=== PATIENT | male | born 1960 | race Two or more races ===

== ENCOUNTER 2019-09-14 12:49 | Emergency (ER) | payer SELFPAY ==
[~2019-09-14] VITALS: Ht 175.3 cm; Wt 150.6 kg
[2019-09-14 13:02] VITALS: BP 152/95
[2019-09-14 13:55] LABS: Basophils # (auto) 0 uL; Basophils % (auto) 0.6 % (0.0-2.0); Eosinophils # (auto) 0.2 uL; Eosinophils % (auto) 2.4 % (0.0-7.0); Hematocrit 43.3 % (41.0-53.0); Hemoglobin 14.6 g/dL (13.5-17.5); Lymphocytes # (auto) 1.7 uL; Lymphocytes % (auto) 26.2 % (10.0-50.0); Mean Corpuscular Hemoglobin 33.4 pg (28.0-32.0); Mean Corpuscular Hgb Conc. 33.8 g/dL (32.0-36.0); Mean Corpuscular Volume 98.6 fL (80.0-100.0); Monocytes # (auto) 0.6 uL; Monocytes % (auto) 8.9 % (0.0-12.0); Neutrophils # (auto) 4.1 uL; Neutrophils % (auto) 61.9 % (37.0-80.0); Nucleated Red Blood Cells % 0.1 %; Platelet Count (auto) 213 10^3/uL (140-450); Red Blood Cells 4.39 10^6/uL (4.5-5.90); Red Cell Distribution Width 13.3 % (11.8-14.3); White Blood Cell 6.6 10^3/uL (4.4-10.8)
[2019-09-14 14:17] LABS: Albumin 3.4 g/dL (3.4-5.0); Anion Gap 4 (5-15); Blood Urea Nitrogen 12 mg/dL (7-18); Calcium 9.7 mg/dL (8.5-10.1); Carbon Dioxide 27 mmol/L (21-32); Chloride 107 mmol/L (98-107); Glucose 83 mg/dL (74-106); Potassium 3.9 mmol/L (3.5-5.1); Sodium 138 mmol/L (136-145)
[2019-09-14 14:20] LABS: Alanine Aminotransferase 16 U/L (16-61); Aspartate Aminotransferase 7 U/L (15-37); Bilirubin, Total 0.5 mg/dL (0.2-1.0); GFR African American 118 mL/min; GFR Non-African American 97 mL/min; Total Protein 7.8 g/dL (6.4-8.2)
[2019-09-14 14:23] LABS: Alkaline Phosphatase 96 U/L (45-117)
== END 2019-09-14 17:16 | disposition left against medical advice (07) ==
LOC: ER 12:49
DX: R07.89 Other chest pain (principal); Z53.21 Procedure and treatment not carried out due to patient leaving prior to being seen by health care provider
CPT/HCPCS: 36415; 71046; 80053; 83735; 83880; 84484; 85025

== ENCOUNTER 2019-11-30 20:09 | Emergency (ER) | payer OTHER ==
[~2019-11-30] VITALS: Ht 175.3 cm; Wt 146.1 kg
[2019-11-30] MEDS ORDERED: ONDANSETRON HCL 4 MG/2 ML VIAL IV ONE (20:30)
[2019-11-30] MEDS ORDERED: MORPHINE SULFATE 4 MG/ML SYR/VIAL IV ONE (20:30)
[2019-11-30] MEDS ORDERED: SODIUM CHLORIDE 0.9% 1,000 ML IV ONE (20:30)
[2019-11-30 21:45] LABS: Basophils # (auto) 0 10 ^3/uL (0-0.2); Basophils % (auto) 0.8 % (0.0-2.0); Eosinophils # (auto) 0.1 10 ^3/uL (0-0.8); Eosinophils % (auto) 2.4 % (0.0-7.0); Hematocrit 42.2 % (41.0-53.0); Hemoglobin 14.1 g/dL (13.5-17.5); Lymphocytes # (auto) 1.9 10 ^3/uL (0.4-5.4); Lymphocytes % (auto) 32.1 % (10.0-50.0); Mean Corpuscular Hemoglobin 32.7 pg (28.0-32.0); Mean Corpuscular Hgb Conc. 33.5 g/dL (32.0-36.0); Mean Corpuscular Volume 97.8 fL (80.0-100.0); Monocytes # (auto) 0.5 10 ^3/uL (0-1.3); Monocytes % (auto) 9.2 % (0.0-12.0); Neutrophils # (auto) 3.2 10 ^3/uL (1.6-8.6); Neutrophils % (auto) 55.5 % (37.0-80.0); Nucleated Red Blood Cells % 0.2 %; Platelet Count (auto) 215 10^3/uL (140-450); Red Blood Cells 4.32 10^6/uL (4.5-5.90); Red Cell Distribution Width 13.7 % (11.8-14.3); White Blood Cell 5.8 10^3/uL (4.4-10.8)
[2019-11-30 22:01] LABS: Albumin 3.2 g/dL (3.4-5.0); Calcium 9.5 mg/dL (8.5-10.1); Potassium 4.1 mmol/L (3.5-5.1)
[2019-11-30 22:05] LABS: BUN/Creatinine Ratio 16.7; Bilirubin, Total 0.4 mg/dL (0.2-1.0); Total Protein 7.2 g/dL (6.4-8.2)
[2019-11-30] MEDS ORDERED: MORPHINE SULF INJ 2 MG/ML SYRINGE 1ML IV ONE (22:15)
[2019-11-30 22:25] VITALS: BP 131/83
== END 2019-11-30 23:14 | disposition home or self-care (01) ==
LOC: ER 20:10
DX: N20.0 Calculus of kidney (principal); I25.10 Atherosclerotic heart disease of native coronary artery without angina pectoris; I10 Essential (primary) hypertension; I25.2 Old myocardial infarction
CPT/HCPCS: 36415; 74176; 80053; 85025; 96361; 96374; 96375; 96376; 99284; J2270; J2405; J7030

== ENCOUNTER 2019-12-03 18:38 | Inpatient (IN) | payer OTHER ==
[~2019-12-03] VITALS: Ht 175.3 cm; Wt 149.7 kg
[2019-12-03] MEDS ORDERED: MORPHINE SULFATE 4 MG/ML SYR/VIAL IV ONE (19:30)
[2019-12-03] MEDS ORDERED: SODIUM CHLORIDE 0.9% 1,000 ML IV ONE (19:30)
[2019-12-03] MEDS ORDERED: ONDANSETRON HCL 4 MG/2 ML VIAL IV ONE (19:30)
[2019-12-03 19:55] LABS: Basophils # (auto) 0 10 ^3/uL (0-0.2); Basophils % (auto) 0.7 % (0.0-2.0); Eosinophils # (auto) 0.1 10 ^3/uL (0-0.8); Eosinophils % (auto) 2.3 % (0.0-7.0); Hematocrit 42.6 % (41.0-53.0); Hemoglobin 14.2 g/dL (13.5-17.5); Lymphocytes # (auto) 1.8 10 ^3/uL (0.4-5.4); Lymphocytes % (auto) 29.5 % (10.0-50.0); Mean Corpuscular Volume 98.3 fL (80.0-100.0); Monocytes # (auto) 0.5 10 ^3/uL (0-1.3); Monocytes % (auto) 8.2 % (0.0-12.0); Neutrophils # (auto) 3.7 10 ^3/uL (1.6-8.6); Neutrophils % (auto) 59.3 % (37.0-80.0); Nucleated Red Blood Cells % 0.1 %; Red Blood Cells 4.34 10^6/uL (4.5-5.90); White Blood Cell 6.2 10^3/uL (4.4-10.8)
[2019-12-03 19:56] LABS: Mean Corpuscular Hemoglobin 32.7 pg (28.0-32.0); Mean Corpuscular Hgb Conc. 33.3 g/dL (32.0-36.0); Platelet Count (auto) 230 10^3/uL (140-450); Red Cell Distribution Width 13.8 % (11.8-14.3)
[2019-12-03 20:03] LABS: Albumin 3.3 g/dL (3.4-5.0); BUN/Creatinine Ratio 18.8; Calcium 9.7 mg/dL (8.5-10.1)
[2019-12-03 20:05] LABS: Bilirubin, Total 0.3 mg/dL (0.2-1.0); Total Protein 7.5 g/dL (6.4-8.2)
[2019-12-03 21:09] LABS: Urine WBC None Seen /hpf (0 - 3)
[2019-12-03 21:16] LABS: Urine Bacteria NONE SEEN /hpf (None Seen); Urine Blood Negative /uL (Negative); Urine Specific Gravity 1.024 (1.001-1.035)
[2019-12-03] MEDS ORDERED: SODIUM CHLORIDE 0.9% 1,000 ML IV SCH (22:29)
[2019-12-03] MEDS ORDERED: HYDROcodone-ACET 5/325MG TAB PO PRN (22:30)
[2019-12-03] MEDS ORDERED: HYDROmorphone HCL 2 MG/ML VL IV ONE (22:30)
[2019-12-03] MEDS ORDERED: DOCUSATE SOD 100 MG CAP PO PRN (22:30)
[2019-12-03] MEDS ORDERED: ONDANSETRON HCL 4 MG/2 ML VIAL IV PRN (22:30)
[2019-12-03] MEDS ORDERED: TEMAZEPAM 15 MG CAP PO ONE (22:30)
[2019-12-03] MEDS ORDERED: ACETAMINOPHEN 325 MG TAB PO PRN (22:30)
[2019-12-03] MEDS ORDERED: MORPHINE SULF INJ 2 MG/ML SYRINGE 1ML IV PRN (22:30)
[2019-12-03] MEDS ORDERED: HYDROmorphone HCL 2 MG/ML VL IM PRN (22:30)
[2019-12-03] MEDS ORDERED: cefTRIAXone 1GM/50ML D5W 50 ML IV SCH (23:00)
[2019-12-04 05:56] VITALS: BP 156/83
[2019-12-04] MEDS ORDERED: NICOTINE 14 MG/24HR TOPICAL PATCH TD SCH (10:00)
== END 2019-12-04 05:10 | disposition left against medical advice (07) | DRG 465 ==
LOC: ER 18:38 → OVERFLOW 18:39 → WEST WING 23:08
PROVIDERS: ADMIT Hospitalist; ATTEND Hospitalist
DX: N20.0 Calculus of kidney (principal); E27.8 Other specified disorders of adrenal gland; D35.01 Benign neoplasm of right adrenal gland; I10 Essential (primary) hypertension; N39.0 Urinary tract infection, site not specified; I25.10 Atherosclerotic heart disease of native coronary artery without angina pectoris; Z53.29 Procedure and treatment not carried out because of patient's decision for other reasons; Z86.73 Personal history of transient ischemic attack (TIA), and cerebral infarction without residual deficits; Z80.9 Family history of malignant neoplasm, unspecified; Z95.1 Presence of aortocoronary bypass graft; Z87.442 Personal history of urinary calculi; D35.02 Benign neoplasm of left adrenal gland; I70.0 Atherosclerosis of aorta
CPT/HCPCS: 36415; 74176; 80053; 81001; 82962; 85025; 96365; 96375; 96376; G0378; J0696; J2405

== ENCOUNTER 2019-12-08 19:12 | Inpatient (IN) | payer OTHER ==
[~2019-12-08] VITALS: Ht 175.3 cm; Wt 147.9 kg
[2019-12-08 20:29] LABS: Basophils # (auto) 0 10 ^3/uL (0-0.2); Basophils % (auto) 0.7 % (0.0-2.0); Eosinophils # (auto) 0.1 10 ^3/uL (0-0.8); Eosinophils % (auto) 2.5 % (0.0-7.0); Hematocrit 42.7 % (41.0-53.0); Hemoglobin 14.3 g/dL (13.5-17.5); Lymphocytes # (auto) 1.8 10 ^3/uL (0.4-5.4); Lymphocytes % (auto) 31.4 % (10.0-50.0); Mean Corpuscular Hemoglobin 32.9 pg (28.0-32.0); Mean Corpuscular Hgb Conc. 33.4 g/dL (32.0-36.0); Mean Corpuscular Volume 98.3 fL (80.0-100.0); Monocytes # (auto) 0.5 10 ^3/uL (0-1.3); Monocytes % (auto) 8.7 % (0.0-12.0); Neutrophils # (auto) 3.3 10 ^3/uL (1.6-8.6); Neutrophils % (auto) 56.7 % (37.0-80.0); Nucleated Red Blood Cells % 0.1 %; Platelet Count (auto) 211 10^3/uL (140-450); Red Blood Cells 4.34 10^6/uL (4.5-5.90); Red Cell Distribution Width 13.8 % (11.8-14.3); White Blood Cell 5.9 10^3/uL (4.4-10.8)
[2019-12-08 20:45] LABS: Partial Thromboplastin Time 27.2 sec (23.64-32.05)
[2019-12-08 20:48] LABS: Albumin 3.2 g/dL (3.4-5.0); Anion Gap 4 (5-15); Blood Urea Nitrogen 15 mg/dL (7-18); Carbon Dioxide 28 mmol/L (21-32); Chloride 106 mmol/L (98-107); Glucose 120 mg/dL (74-106); Potassium 3.8 mmol/L (3.5-5.1); Sodium 138 mmol/L (136-145)
[2019-12-08 20:58] LABS: Alanine Aminotransferase 19 U/L (16-61); Alkaline Phosphatase 88 U/L (45-117); Aspartate Aminotransferase 13 U/L (15-37); BUN/Creatinine Ratio 20.8; Bilirubin, Total 0.3 mg/dL (0.2-1.0); GFR African American 145 mL/min; GFR Non-African American 120 mL/min; Total Protein 7.2 g/dL (6.4-8.2)
[2019-12-08] MEDS ORDERED: MORPHINE SULF INJ 2 MG/ML SYRINGE 1ML IV PRN (21:15)
[2019-12-08] MEDS ORDERED: ONDANSETRON HCL 4 MG/2 ML VIAL IV PRN (21:15)
[2019-12-08] MEDS ORDERED: TEMAZEPAM 15 MG CAP PO PRN (21:15)
[2019-12-08 21:52] VITALS: BP 138/85
[2019-12-08] MEDS ORDERED: FAMOTIDINE 20 MG TAB PO SCH (22:00)
[2019-12-08] MEDS ORDERED: ATORVASTATIN 20 MG TAB PO SCH ×2 (22:00→22:15)
[2019-12-08 22:37] LABS: Cholesterol 210 mg/dL (< 200)
[2019-12-08 22:41] LABS: HDL Cholesterol 27 mg/dL (40-59); LDL Cholesterol 148 mg/dL (< 100); Triglycerides 320 mg/dL (< 150)
[2019-12-08 22:47] LABS: Alcohol, Urine < 3.0 mg/dL (0-5); Amphetamine Screen, Urine NEGATIVE (NEGATIVE); Barbiturate Scree,Urine NEGATIVE (NEGATIVE); Benzodiazephine Screen, Urine NEGATIVE (NEGATIVE); Cannabinoid Screen, Urine NEGATIVE (NEGATIVE); Cocaine Screen, Urine NEGATIVE (NEGATIVE); Opiate Scree,Urine NEGATIVE (NEGATIVE); Phencyclidine Screen, Urine NEGATIVE (NEGATIVE)
[2019-12-09] MEDS ORDERED: LISINOPRIL 20 MG TAB PO SCH (10:00)
[2019-12-09] MEDS ORDERED: ASPirin 81 mg TAB PO SCH (10:00)
[2019-12-09] MEDS ORDERED: METOPROLOL TARTRATE 50 MG TAB PO SCH (10:00)
[2019-12-09] MEDS ORDERED: ENOXAPARIN SOD 40 MG/0.4 ML SYRINGE SC SCH (10:00)
== END 2019-12-08 22:40 | disposition left against medical advice (07) | DRG 198 ==
LOC: ER 19:13 → TELE 19:14
PROVIDERS: ADMIT Nurse Practitioner; ATTEND Nurse Practitioner
DX: I25.110 Atherosclerotic heart disease of native coronary artery with unstable angina pectoris (principal); I24.9 Acute ischemic heart disease, unspecified; E44.1 Mild protein-calorie malnutrition; I11.9 Hypertensive heart disease without heart failure; Z53.29 Procedure and treatment not carried out because of patient's decision for other reasons; E66.01 Morbid (severe) obesity due to excess calories; E78.5 Hyperlipidemia, unspecified; F17.210 Nicotine dependence, cigarettes, uncomplicated; Z80.9 Family history of malignant neoplasm, unspecified; Z82.49 Family history of ischemic heart disease and other diseases of the circulatory system; Z86.73 Personal history of transient ischemic attack (TIA), and cerebral infarction without residual deficits; Z95.1 Presence of aortocoronary bypass graft; Z87.442 Personal history of urinary calculi; I25.2 Old myocardial infarction; Z88.5 Allergy status to narcotic agent; Z88.8 Allergy status to other drugs, medicaments and biological substances; Z91.041 Radiographic dye allergy status; Z98.61 Coronary angioplasty status
CPT/HCPCS: 36415; 71045; 80053; 80061; 80307; 83880; 84443; 84484; 85025; 85610; 85730; 96374; 96375; 99291; G0378; J2405

== ENCOUNTER 2019-12-09 22:46 | Emergency (ER) | payer OTHER ==
[~2019-12-09] VITALS: Ht 175.3 cm; Wt 148.3 kg
[2019-12-09 23:00] VITALS: BP 162/97
[2019-12-09 23:45] LABS: Basophils # (auto) 0.1 10 ^3/uL (0-0.2); Eosinophils # (auto) 0.2 10 ^3/uL (0-0.8); Eosinophils % (auto) 2.7 % (0.0-7.0); Hematocrit 41.7 % (41.0-53.0); Hemoglobin 14.1 g/dL (13.5-17.5); Lymphocytes # (auto) 1.9 10 ^3/uL (0.4-5.4); Mean Corpuscular Hemoglobin 33.4 pg (28.0-32.0); Mean Corpuscular Hgb Conc. 33.8 g/dL (32.0-36.0); Mean Corpuscular Volume 98.7 fL (80.0-100.0); Monocytes # (auto) 0.5 10 ^3/uL (0-1.3); Monocytes % (auto) 8.1 % (0.0-12.0); Neutrophils # (auto) 3.4 10 ^3/uL (1.6-8.6); Neutrophils % (auto) 56.2 % (37.0-80.0); Nucleated Red Blood Cells % 0.1 %; Platelet Count (auto) 200 10^3/uL (140-450); Red Blood Cells 4.22 10^6/uL (4.5-5.90); Red Cell Distribution Width 13.6 % (11.8-14.3); White Blood Cell 6.1 10^3/uL (4.4-10.8)
[2019-12-10 00:07] LABS: Albumin 3.2 g/dL (3.4-5.0); BUN/Creatinine Ratio 18.4; Calcium 9.3 mg/dL (8.5-10.1); Potassium 4.1 mmol/L (3.5-5.1)
[2019-12-10 00:09] LABS: Bilirubin, Total 0.2 mg/dL (0.2-1.0); Total Protein 7.4 g/dL (6.4-8.2)
== END 2019-12-10 00:37 | disposition left against medical advice (07) ==
LOC: ER 22:46
DX: R31.9 Hematuria, unspecified (principal); Z53.21 Procedure and treatment not carried out due to patient leaving prior to being seen by health care provider
CPT/HCPCS: 36415; 80053; 85025

== ENCOUNTER 2019-12-14 22:07 | Emergency (ER) | payer OTHER ==
[~2019-12-14] VITALS: Ht 175.3 cm; Wt 148.3 kg
[2019-12-14 23:37] LABS: Basophils # (auto) 0 10 ^3/uL (0-0.2); Basophils % (auto) 0.5 % (0.0-2.0); Eosinophils # (auto) 0.1 10 ^3/uL (0-0.8); Hematocrit 41.8 % (41.0-53.0); Hemoglobin 14.5 g/dL (13.5-17.5); Lymphocytes # (auto) 2.1 10 ^3/uL (0.4-5.4); Lymphocytes % (auto) 30.1 % (10.0-50.0); Mean Corpuscular Hemoglobin 33.9 pg (28.0-32.0); Mean Corpuscular Hgb Conc. 34.7 g/dL (32.0-36.0); Mean Corpuscular Volume 97.5 fL (80.0-100.0); Monocytes # (auto) 0.5 10 ^3/uL (0-1.3); Monocytes % (auto) 7.3 % (0.0-12.0); Neutrophils # (auto) 4.2 10 ^3/uL (1.6-8.6); Neutrophils % (auto) 60.1 % (37.0-80.0); Platelet Count (auto) 233 10^3/uL (140-450); Red Blood Cells 4.28 10^6/uL (4.5-5.90); Red Cell Distribution Width 13.8 % (11.8-14.3); White Blood Cell 7.1 10^3/uL (4.4-10.8)
[2019-12-14 23:53] LABS: INR 0.99 (0.9-1.15); Partial Thromboplastin Time 26.6 sec (23.64-32.05)
[2019-12-14 23:55] LABS: Albumin 3.2 g/dL (3.4-5.0); Anion Gap 5 (5-15); Blood Urea Nitrogen 9 mg/dL (7-18); Calcium 9.4 mg/dL (8.5-10.1); Carbon Dioxide 26 mmol/L (21-32); Chloride 108 mmol/L (98-107); Glucose 106 mg/dL (74-106); Magnesium 2.1 mg/dL (1.6-2.6); Potassium 3.6 mmol/L (3.5-5.1); Sodium 139 mmol/L (136-145)
[2019-12-14 23:57] LABS: BUN/Creatinine Ratio 11.7; GFR African American 134 mL/min; GFR Non-African American 111 mL/min
[2019-12-15] MEDS ORDERED: LORazepam 0.5 MG TAB PO ONE
[2019-12-15] MEDS ORDERED: NITROGLYCERIN 0.4MG/HR TOPICAL PATCH TD ONE
[2019-12-15] MEDS ORDERED: ENOXAPARIN SOD 100 MG/1 ML SYRINGE SC ONE
[2019-12-15] MEDS ORDERED: ASPirin 81 mg TAB PO ONE
[2019-12-15] MEDS ORDERED: ONDANSETRON HCL 4 MG/2 ML VIAL IV ONE
[2019-12-15 00:02] LABS: Alanine Aminotransferase 19 U/L (16-61); Alkaline Phosphatase 87 U/L (45-117); Aspartate Aminotransferase 9 U/L (15-37); Bilirubin, Total 0.3 mg/dL (0.2-1.0); Total Protein 7.6 g/dL (6.4-8.2)
[2019-12-15 01:45] VITALS: BP 128/66
[2019-12-15] MEDS ORDERED: MORPHINE SULFATE 10 MG/ML INJ 1ML SDV IV ONE ×2 (01:45)
== END 2019-12-15 02:53 | disposition left against medical advice (07) ==
LOC: ER 22:08
DX: I20.9 Angina pectoris, unspecified (principal); I10 Essential (primary) hypertension; E11.9 Type 2 diabetes mellitus without complications; I25.2 Old myocardial infarction; F17.210 Nicotine dependence, cigarettes, uncomplicated; Z87.442 Personal history of urinary calculi; Z86.73 Personal history of transient ischemic attack (TIA), and cerebral infarction without residual deficits; Z88.8 Allergy status to other drugs, medicaments and biological substances
CPT/HCPCS: 36415; 71046; 80053; 83735; 83880; 84484; 85025; 85610; 85730; 93005; 96372; 96374; 96375; 96376; 99285; J1650; J2270; J2405

== ENCOUNTER 2019-12-18 23:30 | Emergency (ER) | payer OTHER ==
[~2019-12-18] VITALS: Ht 172.7 cm; Wt 127.0 kg
[2019-12-18 23:39] VITALS: BP 144/99
[2019-12-19 00:07] LABS: Basophils # (auto) 0 10 ^3/uL (0-0.2); Basophils % (auto) 0.7 % (0.0-2.0); Eosinophils # (auto) 0.2 10 ^3/uL (0-0.8); Eosinophils % (auto) 2.5 % (0.0-7.0); Hemoglobin 14.8 g/dL (13.5-17.5); Lymphocytes # (auto) 2.3 10 ^3/uL (0.4-5.4); Mean Corpuscular Hemoglobin 32.9 pg (28.0-32.0); Mean Corpuscular Hgb Conc. 33.7 g/dL (32.0-36.0); Mean Corpuscular Volume 97.6 fL (80.0-100.0); Monocytes # (auto) 0.6 10 ^3/uL (0-1.3); Monocytes % (auto) 8.6 % (0.0-12.0); Neutrophils # (auto) 3.5 10 ^3/uL (1.6-8.6); Neutrophils % (auto) 53.2 % (37.0-80.0); Nucleated Red Blood Cells % 0.2 %; Platelet Count (auto) 249 10^3/uL (140-450); Red Blood Cells 4.51 10^6/uL (4.5-5.90); Red Cell Distribution Width 13.6 % (11.8-14.3); White Blood Cell 6.6 10^3/uL (4.4-10.8)
[2019-12-19 00:19] LABS: Alanine Aminotransferase 25 U/L (16-61); Albumin 3.4 g/dL (3.4-5.0); Anion Gap 5 (5-15); Aspartate Aminotransferase 11 U/L (15-37); BUN/Creatinine Ratio 14.6; Blood Urea Nitrogen 12 mg/dL (7-18); Calcium 9.4 mg/dL (8.5-10.1); Carbon Dioxide 24 mmol/L (21-32); Chloride 109 mmol/L (98-107); GFR African American 125 mL/min; GFR Non-African American 103 mL/min; Glucose 97 mg/dL (74-106); Sodium 138 mmol/L (136-145)
[2019-12-19 00:24] LABS: Alkaline Phosphatase 93 U/L (45-117); Bilirubin, Total 0.4 mg/dL (0.2-1.0); Total Protein 7.8 g/dL (6.4-8.2)
[2019-12-19 00:54] LABS: Urine Amorphous Crystal FEW /hpf (None Seen); Urine Bacteria FEW /hpf (None Seen); Urine Blood Negative /uL (Negative); Urine Specific Gravity 1.009 (1.001-1.035); Urine WBC <1 /hpf (0 - 3)
== END 2019-12-19 00:56 | disposition left against medical advice (07) ==
LOC: ER 23:31
DX: M54.5 Low back pain (principal); Z53.21 Procedure and treatment not carried out due to patient leaving prior to being seen by health care provider
CPT/HCPCS: 36415; 80053; 81001; 84484; 85025; 93005

== ENCOUNTER 2022-01-25 12:41 | Emergency (ER) | payer OTHER ==
[~2022-01-25] VITALS: Ht 177.8 cm; Wt 145.1 kg
[2022-01-25] MEDS ORDERED: ENOXAPARIN SOD 100 MG/1 ML SYRINGE SC ONE (13:00)
[2022-01-25] MEDS ORDERED: MORPHINE SULFATE 4 MG/ML SYR/VIAL IV ONE (13:00)
[2022-01-25 13:49] LABS: Basophils # (auto) 0.1 10 ^3/uL (0-0.2); Basophils % (auto) 1.4 % (0.0-2.0); Eosinophils # (auto) 0.2 10 ^3/uL (0-0.8); Eosinophils % (auto) 4.1 % (0.0-7.0); Hematocrit 42.5 % (41.0-53.0); Hemoglobin 14.1 g/dL (13.5-17.5); Lymphocytes # (auto) 1.8 10 ^3/uL (0.4-5.4); Lymphocytes % (auto) 31.5 % (10.0-50.0); Mean Corpuscular Hemoglobin 33.2 pg (28.0-32.0); Mean Corpuscular Hgb Conc. 33.2 g/dL (32.0-36.0); Mean Corpuscular Volume 99.9 fL (80.0-100.0); Monocytes # (auto) 0.4 10 ^3/uL (0-1.3); Monocytes % (auto) 7.5 % (0.0-12.0); Neutrophils # (auto) 3.1 10 ^3/uL (1.6-8.6); Neutrophils % (auto) 55.5 % (37.0-80.0); Nucleated Red Blood Cells % 0.1 %; Red Blood Cells 4.25 10^6/uL (4.5-5.90); Red Cell Distribution Width 13.5 % (11.8-14.3); White Blood Cell 5.6 10^3/uL (4.4-10.8)
[2022-01-25] MEDS ORDERED: ONDANSETRON HCL 4 MG/2 ML VIAL IV ONE (14:00)
[2022-01-25 14:05] LABS: INR 0.99 (0.9-1.15); Partial Thromboplastin Time 26.5 sec (23.6-33.0)
[2022-01-25 14:35] VITALS: BP 144/82
[2022-01-25 15:02] LABS: BUN/Creatinine Ratio 18.4; Potassium 4.2 mmol/L (3.5-5.1)
[2022-01-25 15:03] LABS: Albumin 3.3 g/dL (3.4-5.0); Bilirubin, Total 0.3 mg/dL (0.2-1.0); Calcium 9.9 mg/dL (8.5-10.1); Magnesium 2.2 mg/dL (1.6-2.6); Total Protein 7.6 g/dL (6.4-8.2)
== END 2022-01-25 16:27 | disposition home or self-care (01) ==
LOC: EDBD 12:41 → ER 12:41
DX: I24.9 Acute ischemic heart disease, unspecified (principal); I10 Essential (primary) hypertension; I25.2 Old myocardial infarction; I25.10 Atherosclerotic heart disease of native coronary artery without angina pectoris; E11.9 Type 2 diabetes mellitus without complications; F17.210 Nicotine dependence, cigarettes, uncomplicated; Z86.73 Personal history of transient ischemic attack (TIA), and cerebral infarction without residual deficits; Z95.1 Presence of aortocoronary bypass graft; Z88.8 Allergy status to other drugs, medicaments and biological substances
CPT/HCPCS: 36415; 71045; 80053; 83735; 83880; 84443; 84484; 85025; 85610; 85730; 93005; 96374; 96375; 99285; J2270; J2405